=== PATIENT | female | born 2000 | race Caucasian/White ===

== ENCOUNTER 2022-10-15 10:56 | Outpatient (CLI) | payer BC, MEDICAID, SELFPAY ==
[2022-10-15 10:50] VITALS: BMI 40.1
[2022-10-15 11:16] VITALS: BP 124/71; PULSE 87
[2022-10-15 11:29] VITALS: RESP 16; TEMP 36.7
[2022-10-15 11:31] VITALS: BP 116/64; PULSE 81
[2022-10-15 11:48] VITALS: BP 114/64; PULSE 79
== END 2022-10-15 12:05 | disposition home or self-care (01) ==
LOC: OPOB 10:57 → OBGYN 11:05
PROVIDERS: PCP Nurse Practitioner Family; Visit Provider Family Medicine
DX: O16.9 Unspecified maternal hypertension, unspecified trimester (principal); Z3A.00 Weeks of gestation of pregnancy not specified
CPT/HCPCS: 59025; 99211

== ENCOUNTER 2022-11-06 10:19 | Inpatient (IN) | payer BC, MEDICAID, SELFPAY ==
[2022-11-06] VITALS (16 sets, daily range): BP systolic 126–147; BP diastolic 60–84; PULSE 60–86; RESP 15; TEMP 36.7; BMI 40.3
[2022-11-06] MEDS: miSOPROStol 100 mcg tablet 25 MCG VAGINAL ×3 (11:00→20:07)
[2022-11-06 11:02] LABS: Basophils % 0.2 %; Eosinophils % 0.4 %; Hematocrit 30.6 % (37.0-47.0); Hemoglobin 9.3 g/dL (11.5-15.3); Lymphocytes # 1.8 10^3/uL (1.5-6.5); Mean Corpuscular HGB Conc 30.4 g/dL (30.0-36.0); Mean Corpuscular Hemoglobin 22.1 pg (28.0-34.0); Mean Corpuscular Volume 72.9 fl (81-99); Mean Platelet Volume 11.1 fL (7.4-10.4); Monocytes # 0.6 10^3/uL (0.2-0.9); Monocytes % 5.8 %; Neutrophils # 7.93 10^3/uL (1.8-8.0); Neutrophils % 76.3 %; Nucleated Red Blood Cells % 0 %; Platelet Count 339 10^3/cmm (130-400); Red Cell Distribution Width 16.8 % (12.1-15.1); White Blood Count 10.4 10^3/uL (4.5-13.0)
[2022-11-07] VITALS (80 sets, daily range): BP systolic 122–166; BP diastolic 61–103; PULSE 65–137; RESP 15–17; TEMP 36.5–36.8; O2SAT 98–100
[2022-11-07] MEDS: dextrose 5%-lactated ringers 1,000 ML 125 ML IV ×2 (01:30→13:07)
[2022-11-07] MEDS: oxytocin 30 UNIT/500 ML BAG IV (05:17)
[2022-11-07] MEDS: lactated ringers 1,000 ML 999 ML IV ×3 (05:28→11:32)
--- NOTE | 2022-11-07 06:02 | P.ANESUD_ITS ---
Pre-Anesthetic Update Pre-Anesthetic Assessment: Date of Surgery/Procedure: 11/07/22 Preop Senait gnosis: IUP Any changes to Pre-Anesthetic Assessment?: No Last Intake: 19:30 Labs Last 48hrs: Short CBC 11/06/22 Range/Units 10:40 WBC 10.4 (4.5-13.0) 10^3/ uL Hgb 9.3 L (11.5-15.3) g/dL Hct 30.6 L (37.0-47.0) % MCV 72.9 L (81-99) fl Plt Count 339 (130-400) 10^3/c mm Neut % (Auto) 76.3 % Neut # (Auto) 7.93 (1.8-8.0) 10^3/u L Vitals: Temperature 98.0 F 11/06/22 10:30 Temperature Source Oral 11/06/22 10:30 Pulse Rate 68 11/07/22 03:45 Respiratory Rate 15 11/06/22 10:47 Respiratory Effort Non-Labored 11/06/22 11:25 Respiratory Depth Normal 11/06/22 11:25 Respiratory Patter n 11/06/22 11:25 Blood Pressure 128/61 11/07/22 03:45 Oxygen Delivery Me thod 11/06/22 11:25 Exam: Pre-Anes Outpt Exam: alert, oriented x 3, clear to auscultation bilaterally and regular rate & rhythm Cardiac Studies: No Data to Display
--- NOTE | 2022-11-07 06:38 | P.HPUD_ITS ---
Labor & Delivery H&P Update Date of Procedure: November 07, 2022 Date H&P Performed: 11/01/22 Changes to previous documentation: Changes to previous documentation upon arrival to the hospital. Admission Diagnosis: 22-year-old 1 at 41 weeks estimated gestational age presenting for postdates induction Preop diagnosis: IUP Primary indication for procedure: Postdates Planned procedure: Spontaneous vaginal delivery Other information: The patient is a relatively healthy 3 female who had an unremarkable . Her due date was based on her last menstrual period. Her labs were as follows. Her blood type was a positive. Her antibody screen was negative. She is rubella immune. Her GBS status is negative. She passed her glucose screen. The remainder of her infectious disease profile was within norm al limits. Her drug screen was negative. We discussed the pros and cons of induction with the patient, and together we elected to proceed with an induction after 41 weeks. She and her have no further questions. Related Problem List Diagnoses (1) 41 weeks gestation of : A&P Assessment and plan (1) 41 weeks gestation of : I anticipate routine induction. The patient has received 3 doses of Cytotec. Pitocin was initiated this morning. Has chosen to have an epidural. Status: Acute
--- NOTE | 2022-11-07 07:09 | ANES.PROC ---
Anesthesia Procedures Procedure/Date: 11/07/22 Epidural: Time Out Performed: Yes Consents Signed: Procedure Consent and NPO Consent Consent: requested by attending/covering physician, from patient, risks and benefits reviewed and patient agrees to proceed Lumbar Level: L2-L3 Epidural position: sitting Epidural procedure: sterile prep of area, 1% lidocaine to numb the area (3 mL), neg for paresthesia, test dose given, 1.5% xylocaine 1:200k epi (3 mL/ 2 mL), 0.2% Ropivacaine bolus ml (5), placed PCEA, no systemic response, sterile dressing applied, L.U.D. no apparent complications and 0.2% Ropiavacaine @ mls/hr (13) Additional Comments: NIDA 8cm, catheter placed at 13 cm 3 attempts
[2022-11-07] MEDS: ondansetron 2 mg/ML SDV 2 mL 4 MG IVP (13:11)
--- NOTE | 2022-11-07 15:51 | P.PCNOB_ITS ---
Delivery Note: Date of delivery: November 07, 2022 Pre-delivery diagnoses: 1. 22-year-old 1 at 41 weeks estimated gestational age induced due to postdates Post-delivery diagnoses: Status post spontaneous vaginal delivery Procedure: Continuous vaginal delivery Delivering Physician: Dre Brown Estimated blood loss (mL): 100 Pre-Delivery Course: The patient presented for the hospital for induction due to postdates. Cytotec 25 mcg x 3 were placed every 4 hours. An epidural was placed. An amniotomy was performed. Pitocin was added for augmentation. She progressed to complete in labor down prior to pushing. She did have several episodes where the baby had decelerations which responded to position changes. Delivery: DELIVERY: The patient progressed to complete without difficulty. She delivered a male with a weight of 7 pounds 3 ounces with Apgars of 8, 9. The baby was delivered from the MAX position andplaced on the mother's abdomen. The baby's mouth and nose were suctioned orally after delivery. The cord was then clamped and cut. There was no nuchal cord. Significant meconium was noted. The placenta and 3 vessel cord were delivered intact shortly thereafter. The perineum and vaginal vault were carefully examined. A first-degree tear on the patient's left and right medial aspect of the lab [place] were noted. The tear on her right side was continued to bleed, and was repaired with 3-0 Vicryl in a running stitch. No further repairs were required. Both the mother and the baby were in stable condition. 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
--- NOTE | 2022-11-07 16:25 | ANE.PACU2 ---
Inpatient post-anesthesia follow up: Airway intact: Yes Vital signs: Temperature 98.1 F Pulse Rate 91 Respiratory Rate 16 Blood Pressure 128/68 Pulse Oximetry 99 Oxygen Delivery Me thod Room Air Oxygen Flow Rate Fraction of Inspir ed Oxygen Hydration adequate: Yes Nausea and vomiting: No Pain level: 2 Mental status: Baseline
--- NOTE | 2022-11-07 17:00 | PC.NURSE ---
Pt up to bathroom with minimal assistance. Pt voided well. Cyn care demonstrated and performed by pt. Gown, underwear and pad changed. Bed linens changed. Pt remains up in room visiting with family.
[2022-11-07] MEDS: benzocaine-menthol 78 gm Canister 1 SPRAY TOPICAL (18:26)
--- NOTE | 2022-11-07 19:04 | PC.NURSE ---
pt ambulated to OB8. oriented to room/call light. proud parent pack discussed.
[2022-11-07] MEDS: ibuprofen 800 mg tablet PO (20:53)
[2022-11-07] MEDS: docusate sodium 100 mg Capsule PO (20:53)
[2022-11-08 01:40] VITALS: BP 131/80; PULSE 80; RESP 16; TEMP 36.6; O2SAT 99
[2022-11-08 03:59] VITALS: BP 137/81; PULSE 73; RESP 16; TEMP 36.6; O2SAT 97
[2022-11-08 04:23] LABS: Hemoglobin 7.4 g/dL (11.5-15.3); Mean Corpuscular HGB Conc 29.6 g/dL (30.0-36.0); Mean Corpuscular Hemoglobin 21.9 pg (28.0-34.0); Mean Platelet Volume 10.6 fL (7.4-10.4); Platelet Count 255 10^3/cmm (130-400); Red Blood Count 3.38 10^6/uL (4.1-5.3); Red Cell Distribution Width 16.6 % (12.1-15.1)
--- NOTE | 2022-11-08 07:41 | PM.OBGYDC ---
Discharge Providers REPAIR TECH Date of Admission: 11/06/22 10:19 Date of Discharge: 11/08/22 Attending Provider at Admission: Dre Brown MD Attending Provider at Discharge: Dre Brown MD Primary Care Provider: BLANCA Carolina Diagnoses at Discharge Discharge Diagnosis (1) 41 weeks gestation of : Status: Acute (2) Spontaneous vaginal delivery: Status: Acute Reason for Visit Reason for Visit: IOL Hospital Course Hospital Course The patient presented to the hospital at 40 weeks estimated gestational age for postdates induction. She was placed on Cytotec 25 mcg x 3. Amniotomy was performed. An epidural was placed. Pitocin was used to augment labor. She progressed to complete and had an unremarkable delivery of a healthy-appearing male . Her course was also been unremarkable. She has bottle-fed. Her bleeding has been within normal limits. Her pain is been well controlled. Information Peripartum Data: Infant Delivery Method: Vaginal Physical Exam Narrative: The patient is alert. She appears comfortable. Her heart has a regular rate and rhythm with no murmurs appreciated. Lungs are clear to auscultation bilaterally. Her fundus is firm and below the umbilicus. Urinary Catheter Management: Toure Latex: Cath Placed During This Visit: yes Urinary Catheter Date of Insertion: 11/07/22 Urinary Catheter Time of Insertion: 07:37 Discharge Data Studies Completed and Pending Laboratory Results WBC 11.0 10^3/uL (4.5-13.0) 11/08/22 04:10 RBC 3.38 10^6/uL (4.1-5.3) L 11/08/22 04:10 Hgb 7.4 g/dL (11.5-15.3) L 11/08/22 04:10 Hct 25.0 % (37.0-47.0) L 11/08/22 04:10 MCV 74.0 fl (81-99) L 11/08/22 04:10 MCH 21.9 pg (28.0-34.0) L 11/08/22 04:10 MCHC 29.6 g/dL (30.0-36.0) L 11/08/22 04:10 RDW 16.6 % (12.1-15.1) H 11/08/22 04:10 Plt Count 255 10^3/cmm (130-400) 11/08/22 04:10 MPV 10.6 fL (7.4-10.4) H 11/08/22 04:10 Neut % (Auto) 76.3 % 11/06/22 10:40 Lymph % (Auto) 17.0 % 11/06/22 10:40 [place] % (Auto) 5.8 % 11/06/22 10:40 Eos % (Auto) 0.4 % 11/06/22 10:40 Baso % (Auto) 0.2 % 11/06/22 10:40 Neut # (Auto) 7.93 10^3/uL (1.8-8.0) 11/06/22 10:40 Lymph # (Auto) 1.8 10^3/uL (1.5-6.5) 11/06/22 10:40 [place] # (Auto) 0.6 10^3/uL (0.2-0.9) 11/06/22 10:40 Eos # (Auto) 0.0 10^3/uL (0.0-0.8) 11/06/22 10:40 Baso # (Auto) 0.0 10^3/uL (0.0-0.1) 11/06/22 10:40 Nucleated RBC % (auto) 0 % 11/06/22 10:40 Nucleated RBCs # 0.0 /100WBC 11/06/22 10:40 Vitals Last Vital Signs Temp 97.8 F 11/08/22 03:59 Pulse 73 11/08/22 03:59 Resp 16 11/08/22 03:59 BP 137/81 11/08/22 03:59 Pulse Ox 97 11/08/22 03:59 O2 Del Method 11/08/22 03:59 Discharge Plan Discharge Patient Disposition: Home Condition: Stable Prescriptions: New ibuprofen 800 mg Tablet 800 mg PO TID Qty: 45 0RF Continued Bariatric Multivitamins 45 mg iron- 800 mcg-120 mcg capsule 1 cap PO DAILY iron 325 mg (65 mg iron) Tablet 325 mg PO BID Vitamin C Discharge Orders: Discharge Order (Routine); Ordered 11/08/22 Ordered By: Dre Brown Referrals: Dre Brown MD [Physician] - 6 Weeks Discharge Diet: Usual diet Discharge Activity: Limit activity as instructed Patient Instructions: Opioid Safety Discharge Attestations REPAIR TECH Time Spent in Discharge Care*: less than 30 min Coding Level of Care Code Acute Mission Support Specialist for Chg Fwd Diagnoses 41 weeks gestation of O48.0; Z3A.41 Spontaneous vaginal delivery O80
[2022-11-08] MEDS: ibuprofen 800 mg tablet PO ×2 (08:53→14:56)
[2022-11-08] MEDS: docusate sodium 100 mg Capsule PO (08:53)
[2022-11-08] MEDS: prenatal vitamin Capsule 1 CAP PO (08:53)
[2022-11-08 09:00] VITALS: BP 130/86; PULSE 93; TEMP 36.5; O2SAT 98
[2022-11-08 15:24] VITALS: BP 126/85; PULSE 79; TEMP 36.8; O2SAT 98
[2022-11-08 16:10] VITALS: BP 126/85; PULSE 79; TEMP 36.8; O2SAT 98
== END 2022-11-08 16:10 | disposition home or self-care (01) | DRG 807 ==
LOC: OPOB 10:19 → OBGYN 10:24
PROVIDERS: Admitting Provider Family Medicine; PCP Nurse Practitioner Family; Visit Provider Family Medicine
DX: O48.0 Post-term pregnancy (principal); Z37.0 Single live birth; O76 Abnormality in fetal heart rate and rhythm complicating labor and delivery; O77.0 Labor and delivery complicated by meconium in amniotic fluid; O70.0 First degree perineal laceration during delivery; Z3A.41 41 weeks gestation of pregnancy
CPT/HCPCS: 12345; 36415; 51702; 59025; 59409; 85025; 85027; 96374; J2405; J2590; J2795; J7120; J7121

== ENCOUNTER 2024-11-19 18:28 | Inpatient (IN) | payer BC, MEDICAID, SELFPAY ==
[2024-11-19] VITALS (18 sets, daily range): BP systolic 121–149; BP diastolic 59–79; PULSE 77–97; RESP 18; TEMP 35.6–36.6; BMI 40.4
[2024-11-19 20:39] LABS: Basophils % 0.3 %; Eosinophils # 0.1 10^3/uL (0.0-0.8); Eosinophils % 0.5 %; Hematocrit 24.3 % (36-47); Lymphocytes # 3.1 10^3/uL (0.8-4.8); Lymphocytes % 29.5 %; Mean Corpuscular HGB Conc 27.2 g/dL (30-55); Mean Corpuscular Volume 62.6 fl (85-98); Monocytes # 0.7 10^3/uL (0.2-0.9); Monocytes % 6.5 %; Neutrophils # 6.54 10^3/uL (1.8-7.7); Neutrophils % 62.9 %; Nucleated Red Blood Cells % 0 %; Platelet Count 359 10^3/cmm (157-399); Red Blood Count 3.88 10^6/uL (3.85-5.65); Red Cell Distribution Width 18.5 % (12.1-15.1); White Blood Count 10.38 10^3/uL (3.29-11.43)
[2024-11-19] MEDS: ampicillin 2,000 MG in sodium chloride 0.9% (plus) 50 ML 100 MG IV (21:19)
[2024-11-19] MEDS: lactated ringers 1,000 ML 125 ML (21:20)
[2024-11-19] MEDS: miSOPROStol 100 mcg tablet 25 MCG VAGINAL (22:53)
[2024-11-20] VITALS (84 sets, daily range): BP systolic 117–160; BP diastolic 58–95; PULSE 70–118; RESP 16–18; TEMP 35.6–37; O2SAT 98–100
[2024-11-20] MEDS: ampicillin 1,000 MG in sodium chloride 0.9% (plus) 50 ML 100 MG IV ×4 (02:18→14:21)
[2024-11-20 03:39] LABS: Basophils % 0.4 %; Eosinophils # 0.1 10^3/uL (0.0-0.8); Eosinophils % 0.5 %; Hematocrit 25.9 % (36-47); Lymphocytes # 2.9 10^3/uL (0.8-4.8); Lymphocytes % 28.6 %; Mean Corpuscular HGB Conc 27.4 g/dL (30-55); Mean Corpuscular Hemoglobin 17.8 pg (27-33); Mean Corpuscular Volume 64.8 fl (85-98); Mean Platelet Volume 9.9 fL (7.4-10.4); Monocytes # 0.6 10^3/uL (0.2-0.9); Monocytes % 5.7 %; Neutrophils # 6.46 10^3/uL (1.8-7.7); Neutrophils % 64.5 %; Nucleated Red Blood Cells % 0 %; Platelet Count 351 10^3/cmm (157-399); White Blood Count 10.01 10^3/uL (3.29-11.43)
[2024-11-20] MEDS: miSOPROStol 100 mcg tablet 25 MCG VAGINAL (03:59)
[2024-11-20] MEDS: ROPivacaine syringe 100 MG/50 ML SYRINGE 12 MG EPIDURAL ×4 (04:50→15:53)
--- NOTE | 2024-11-20 04:53 | P.ANESASSM_ITS ---
Pre-Anesthetic Assessment Height/Weight: Height 1.8 m Weight 131.542 kg Temp Pulse Resp BP Pulse Ox O2 Del Method 96.1 F L 107 H 18 136/77 100 Room Air 11/20/24 02:50 11/20/24 04:48 11/19/24 22:35 11/20/24 04:48 11/20/24 04:42 11/19/24 20:11 Epidural Familial anesthetic complications: None Was Beta Adeel taken within 24 hours: N/A Was Clonidine taken within 24 hours: N/A Last intake: 1700 solid food Social No alcohol and No tobacco Exam alert, oriented x 3 and regular rate & rhythm Airway Submandibular: within normal limits Cervical ROM: within normal limits Mallampati: Class III Dentition: full History/ROS No significant history except as noted and No significant complaints Pulmonary None reported CV/HEM Anemia (Received 1 unit PRBC. Denied lightheadedness, dizziness, or syncopal episodes.) None reported Hepatic None reported GI None reported Metabolic Morbid Obesity [facility] [place]/sk None reported Neuropsych None reported Anesthetic Plan ASA status: 3 Anesthesia: Anesthesia Evaluation, General and Regional (specify below) (Epidural) Risk of > 500 ml blood loss (7ml/kg in children): Yes, adequate IV access and fluids planned Medications/Allergies Home Medications Medication Instructions Recorded Confirmed Last Taken Type ibuprofen 800 mg tablet 800 mg PO TID #45 tabs 11/08/22 08/27/23 Unknown Rx gxvuzbzt-[id number] 3.5 1 drp ophthalmic (eye) Q8H #5 mL 08/27/23 08/27/23 Unknown Rx mg/mL-10,000 unit/mL-0.1% eye drops (Maxitrol) Allergies Allergy/AdvReac Type Severity Reaction Status Date / Time Opioids - Morphine Analogues AdvReac sick Verified 08/27/23 16:04 Current Medications Generic Name Dose Route Start Last Admin Trade Name Freq PRN Reason Stop Dose Admin Ampicillin Sodium 1,000 mg/ 50 mls @ 100 mls/hr 11/20/24 00:15 11/20/24 02:18 Sodium Chloride IV 100 mls/hr Q4H CELINA Administration Protocol [facility] Anesthesia Medical History Bronchitis Sinusitis Social History (Reviewed 08/27/23 @ 16:20 by BERNY Pete Smoking and tobacco/nicotine status: never used tobacco/nicotine Second hand smoke exposure: No Alcohol intake: never Substance/Drug Use: never Female Reproductive History : 2 Data Anesthesia 11/20/24 03:34 Short CBC 11/19/24 11/20/24 11/20/24 Range/Units 20:00 03:00 03:34 WBC 10.38 Cancelled 10.01 (3.29-11.43) 10^3/uL Hgb 6.60 L Cancelled 7.10 L (11.27-16.99) g/dL Hct 24.3 L Cancelled 25.9 L (36-47) % MCV 62.6 L Cancelled 64.8 L (85-98) fl Plt Count 359 Cancelled 351 (157-399) 10^3/cmm Neut % (Auto) 62.9 Cancelled 64.5 % Neut # (Auto) 6.54 Cancelled 6.46 (1.8-7.7) 10^3/uL Blood Bank 11/19/24 20:00 Blood Type A Positive Rho(D) Type Rh positive Antibody Screen Negative Cardiac Studies: 2 No Data to Display
--- NOTE | 2024-11-20 04:57 | ANES.PROC ---
Documented by User: Sherman Jeff, DEREK 11/20/24 05:00 Anesthesia Procedures Procedure/Date: 11/20/24 Epidural: Time Out Performed: Yes Consents Signed: Procedure Consent and NPO Consent Consent: requested by attending/covering physician, from patient, risks and benefits reviewed and patient agrees to proceed Lumbar Level: L3-L4 Epidural position: sitting Epidural procedure: sterile prep of area (betadine), 1% lidocaine to numb the area (3 mLs), neg for paresthesia, test dose given, 1.5% xylocaine 1:200k epi (3 mLs/ 2 mLs), placed PCEA, no systemic response, sterile dressing applied, L.U.D. no apparent complications and 0.2% Ropiavacaine @ mls/hr (12) Additional Comments: NIDA 8cm, no csf or blood noted upon aspiration. Catheter threaded to 14cm. Patient tolerated procedure well. Documented by User: Taran Woods DO 11/20/24 11:54 Anesthesia Procedures Procedure/Date: 11/20/24 Epidural: Additional Comments: NIDA 8cm, no csf or blood noted upon aspiration. Catheter threaded to 14cm. Patient tolerated procedure well. Received a call for epidural not working well around 1100. Catheter pulled back to 12cm. 100mcg fentnayl and 5cc 2% lidocaine pushed through epidural. FU patient stated she was feeling much better
[2024-11-20] MEDS: oxytocin 30 UNIT/500 ML BAG IV (08:00)
--- NOTE | 2024-11-20 09:45 | PM.OBGYHP ---
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 She presented to the hospital last night for induction due to having gestational hypertension. She presented to my office on 3 separate occasions in the last week and was noted to have elevated blood pressures including some severe pressures. We checked her multiple times and each visit and despite our multiple visit checks she was elevated each time. A preeclamptic profile done in my office last week was negative. Another complicating factor is the patient's anemia. She has been on iron throughout her due to having hemoglobins that have been in the 7.1-7.5 range. Despite being on iron with vitamin C separate from meals, she was unable to improve her hemoglobin. We did set her up for IV iron, but the prior authorization process had took several weeks and she would not have been able to get it done the end of this week at the earliest. Since we are inducing her for her gestational hypertension/preeclampsia, the IV iron would not have been helpful as would require some time to build up her blood counts. Thankfully she has had no symptoms of anemia. She had been hemodynamically stable throughout. I encouraged her to drink plenty of fluids over the last couple of days we knew there is a chance she could be getting induced. Present Details : 2 Para: 1 Labs Rubella: Immune RPR: Negative GBS: Positive Review of Systems General: Reports: 10 or more systems reviewed and unremarkable except in HPI and below Const: Reports: fatigue; Denies: fever(s) Eyes: Denies: change in vision Card: Reports: edema; Denies: chest pain Musc: Reports: back pain Gary/Lymph: Denies: easy bruising Medications/Allergies Home Medications Medication Instructions Recorded Confirmed Last Taken Type ferrous sulfate 325 mg (65 mg 325 mg PO BID #180 tabs 11/21/24 Unknown Rx iron) tablet,delayed release ibuprofen 800 mg tablet 800 mg PO TID #45 tabs 11/21/24 Unknown Rx Allergies Allergy/AdvReac Type Severity Reaction Status Date / Time Opioids - Morphine Analogues AdvReac sick Verified 08/27/23 16:04 PFS 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 PFSH: Medical History (Updated 11/20/24 @ 17:43 by Dre Brown MD) Bronchitis Sinusitis Surgical History (Updated 11/20/24 @ 09:50 by Dre Brown MD) Bariatric surgery status Social History Smoking and tobacco/nicotine status: never used tobacco/nicotine Second hand smoke exposure: No Alcohol intake: never Substance/Drug Use: never History History History 2 Term 2 0 Miscarriages/Ectopic 0 Living Children 2 Vitals/I&O/Wt Last Vital Signs Temp 96.1 F L 11/20/24 02:50 Pulse 77 11/20/24 09:37 Resp 18 11/20/24 00:27 BP 138/82 11/20/24 09:37 Pulse Ox 100 11/20/24 04:42 O2 Del Method Room Air 11/19/24 20:11 11/19/24 11/20/24 11/20/24 22:59 06:59 14:59 Intake Total 0 / 0 400 / 400 107.750 / 107.750 Balance 0 / 0 400 / 400 107.750 / 107.750 Weight last 48 hrs Weight 290 lb Physical Exam Const: COMMON NORMALS: patient oriented x3 and alert HENMT: COMMON NORMALS: moist oral mucous membranes HEAD & SCALP: normal to inspection Chest: COMMONS NORMALS: normal inspection of the chest Resp: COMMON NORMALS: clear to auscultation bilaterally AUSCULTATION: clear to auscultation bilaterally Cardio: COMMON NORMALS: regular rate and regular rhythm RATE: regular rate RHYTHM: regular rhythm GI: INSPECTION: Yes normal to inspection and Yes other (Gravid) Extremity: COMMON NORMALS: normal to inspection GENERAL: Yes edema (Trace to 1+.) Neuro: COMMON NORMALS: patient oriented x3, moves all extremities and no sensory deficits noted SENSORIUM/ORIENTATION: Yes alert Psych: COMMON NORMALS: mental status grossly normal Skin: COMMON NORMALS: no rashes or lesions noted GENERAL SKIN EXAM: no rashes or lesions noted Urinary Catheter Management: Toure: Cath Placed During This Visit: yes Reason for Continuing Indwelling Catheter: Required Immobilization for Trauma or Surgery or Anesthesia Urinary Catheter Date of Insertion: 11/20/24 Urinary Catheter Time of Insertion: 05:35 Data 11/21/24 04:54 Results Labs OB ([facility]): Blood Type A Positive 11/19/24 Antibody Screen Negative 11/19/24 Hct 23.2 % (36-47) L 11/21/24 Hgb 6.20 g/dL (11.27-16.99) L* 11/21/24 Rho(D) Type Rh positive 11/19/24 Plt Count 237 10^3/cmm (157-399) 11/21/24 A&P Assessment and plan (1) 37 weeks gestation of : (2) Gestational hypertension: We will continue to monitor for other indications of preeclampsia. Thankfully, her blood pressures have been doing better overall during labor process. (3) Anemia affecting , antepartum: Upon arrival to hospital she was noted to have a hemoglobin of less than 7. I elected to give her 1 unit of blood. We also have placed 2 18-gauge IVs. Her blood been typed and screened. She is otherwise been hemodynamically stable. During the delivery if we see any indication that she would benefit from further interventions will be much quicker to start manage interventions due to her baseline hemoglobin level. Attestations Medical Necessity Statement*: I anticipate routine antepartum and care. Coding Level of Care Code Acute Code for Chg Fwd Diagnoses 37 weeks gestation of Z3A.37 Gestational hypertension O13.9 Anemia affecting , antepartum O99.019
[2024-11-20] MEDS: tranexamic acid 1,000 MG/100 ML PREMIX 600 MG IV (17:26)
[2024-11-20] MEDS: oxytocin 30 UNIT/500 ML BAG 999 UNIT IV (17:27)
--- NOTE | 2024-11-20 17:36 | PM.DELIVERY ---
Delivery Note: Date of delivery: November 20, 2024 Pre-delivery diagnoses: 24-year-old 2 para 1-0-0-1 at 37 weeks estimated gestational age Gestational hypertension Gestational anemia Post-delivery diagnoses: Status post spontaneous vaginal delivery Procedure: Spontaneous vaginal delivery Estimated blood loss (mL): 50 Pre-Delivery Course: The patient presented to the hospital the night prior to delivery. She was induced due to gestational hypertension. She was known to have significant anemia. Upon arrival at the hospital her CBC was checked and her hemoglobin was found to be 6.6. She was given a unit of packed red blood cells. She was placed on Cytotec 25 mcg x 2. An amniotomy was performed. Pitocin was added. She progressed to complete without difficulty. Delivery: DELIVERY: The patient progressed to complete without difficulty. She delivered a male with a weight of 6 pounds 14 ounces with Apgars of 7, 8. The baby was delivered from the MAX position and placed on the mother's abdomen.. The baby's mouth and nose were suctioned shortly after delivery. . The cord was then clamped and cut about 1 minute after delivery. There was a nuchal cord x 1. The baby was delivered through the cord.. There was no meconium. The placenta and 3 vessel cord were delivered intact shortly thereafter. The perineum and vaginal vault were carefully examined. No lacerations were noted. Both the mother and the baby were in stable condition. Post-Delivery Status: Good History History History 2 Term 2 0 Miscarriages/Ectopic 0 Living Children 2 A&P Assessment and plan (1) Gestational hypertension: The patient has had minimal issues with blood pressures during her labor. She has had no other symptoms of preeclampsia. As such, we will monitor her blood pressure, but we will not do any further intervention to evaluate or treat for preeclampsia. If her symptoms or vital signs change we will adjust accordingly. (2) 37 weeks gestation of : (3) Spontaneous vaginal delivery: (4) Anemia complicating , unspecified trimester: We will recheck her blood counts 4 hours postdelivery. We will monitor her bleeding very carefully due to her significant anemia. Coding Level of Care Code Acute Code for g Fwd Diagnoses Gestational hypertension O13.9 37 weeks gestation of Z3A.37 Spontaneous vaginal delivery O80 Anemia complicating , unspecified trimester O99.019
--- NOTE | 2024-11-20 18:57 | PC.NURSE ---
IV IN RIGHT FOREARM INFILTRATED SO IT WAS REMOVED AND ANOTHER #20 JELCO WAS STARTED IN RIGHT AC SPACE.
[2024-11-20] MEDS: ibuprofen 800 mg tablet PO (21:19)
[2024-11-20] MEDS: benzocaine-menthol 78 gm Canister 1 SPRAY TOPICAL (21:20)
[2024-11-20 22:22] LABS: Hematocrit 26.1 % (36-47); Mean Corpuscular HGB Conc 27.6 g/dL (30-55); Mean Corpuscular Hemoglobin 18.2 pg (27-33); Mean Corpuscular Volume 66.1 fl (85-98); Mean Platelet Volume 10.2 fL (7.4-10.4); Platelet Count 339 10^3/cmm (157-399); Red Blood Count 3.95 10^6/uL (3.85-5.65); Red Cell Distribution Width 19.9 % (12.1-15.1); White Blood Count 15.35 10^3/uL (3.29-11.43)
[2024-11-21] VITALS (8 sets, daily range): BP systolic 128–219; BP diastolic 73–139; PULSE 71–98; RESP 16–17; TEMP 36.4–36.6; O2SAT 98–100
[2024-11-21] MEDS: HYDROcodone-acetaminophen 5-325 mg Tablet PO (03:58)
[2024-11-21 05:04] LABS: Hematocrit 23.2 % (36-47); Mean Corpuscular HGB Conc 26.7 g/dL (30-55); Mean Corpuscular Volume 67.2 fl (85-98); Mean Platelet Volume 10.3 fL (7.4-10.4); Platelet Count 237 10^3/cmm (157-399); Red Blood Count 3.45 10^6/uL (3.85-5.65); Red Cell Distribution Width 19.9 % (12.1-15.1); White Blood Count 12.08 10^3/uL (3.29-11.43)
[2024-11-21] MEDS: docusate sodium 100 mg Capsule PO (09:53)
[2024-11-21] MEDS: ferrous sulfate EC 325 mg Tablet PO (09:54)
[2024-11-21] MEDS: ibuprofen 800 mg tablet PO ×2 (09:54→15:27)
--- NOTE | 2024-11-21 10:03 | ANE.PACU2 ---
Inpatient post-anesthesia follow up: Airway intact: Yes Vital signs: Temperature 97.5 F Pulse Rate 74 Respiratory Rate 16 Blood Pressure 149/95 Pulse Oximetry 100 Oxygen Delivery Me thod Room Air Oxygen Flow Rate Fraction of Inspir ed Oxygen Hydration adequate: Yes Nausea and vomiting: No Pain level: 1 Mental status: Baseline Epidural Start/End: Epidural Start Date: 11/20/24 Epidural Start Time: 04:23 Epidural End Date: 11/20/24 Epidural End Time: 18:16
--- NOTE | 2024-11-21 11:16 | PM.OBGYDC ---
Discharge Providers BUSINESS OBJECTS REPORT DEVELOPER Date of Admission: 11/19/24 18:28 Date of Discharge: 11/21/24 Attending Provider at Admission: Dre Brown MD Attending Provider at Discharge: Dre Brown MD Primary Care Provider: BLANCA [place] Diagnoses at Discharge Discharge Diagnosis (1) Gestational hypertension: Status: Acute (2) 37 weeks gestation of : Status: Acute (3) Spontaneous vaginal delivery: Status: Acute (4) Anemia complicating , unspecified trimester: Status: Acute Reason for Visit Reason for Visit: IOL Hospital Course Hospital Course The patient presented to the hospital for induction due to gestational hypertension. She was placed on Cytotec 25 mcg x 2. An epidural was placed. An amniotomy was performed. Pitocin was initiated. She progressed to complete and had an unremarkable delivery of a healthy appearing male . She did spike some severe blood pressures the night after her delivery. Thankfully these were all followed by normal range blood pressures shortly after they were measured. Her bleeding has been minimal. Her pain has been well-controlled. There have been no concerns. She did have significant anemia. She received a unit of blood after arrival to hospital. Thankfully during her delivery there was minimal bleeding and no further blood was required. Information Peripartum Data: Infant Delivery Method: Vaginal Physical Exam Narrative: The patient is alert. She appears comfortable. Her heart has a regular rate and rhythm with no murmurs appreciated. Lungs are clear to auscultation bilaterally. Her fundus is firm and below the umbilicus. Urinary Catheter Management: Toure: Cath Placed During This Visit: yes, but has since been removed by the nurse Reason for Continuing Indwelling Catheter: Decision to DC Catheter Urinary Catheter Date of Insertion: 11/20/24 Urinary Catheter Time of Insertion: 05:35 Date Urinary Catheter Removed: 11/20/24 Time Urinary Catheter Discontinued: 17:10 History History History 2 Term 2 0 Miscarriages/Ectopic 0 Living Children 2 Discharge Data Studies Completed and Pending Pending at discharge Category Date Time Status RED BLOOD CELLS [Leukocyte Reduced RBC] Routine Lab 11/19/24 20:00 Results Type and Screen Routine Lab 11/19/24 20:00 Results Laboratory Results WBC 12.08 10^3/uL (3.29-11.43) H 11/21/24 04:54 Corrected WBC Cancelled 11/20/24 03:00 RBC 3.45 10^6/uL (3.85-5.65) L 11/21/24 04:54 Hgb 6.20 g/dL (11.27-16.99) L* 11/21/24 04:54 Hct 23.2 % (36-47) L 11/21/24 04:54 MCV 67.2 fl (85-98) L 11/21/24 04:54 MCH 18.0 pg (27-33) L 11/21/24 04:54 MCHC 26.7 g/dL (30-55) L 11/21/24 04:54 RDW 19.9 % (12.1-15.1) H 11/21/24 04:54 Plt Count 237 10^3/cmm (157-399) D 11/21/24 04:54 MPV 10.3 fL (7.4-10.4) 11/21/24 04:54 Gran % Cancelled 11/20/24 03:00 Neut % (Auto) 64.5 % 11/20/24 03:34 Lymph % (Auto) 28.6 % 11/20/24 03:34 Dodge % (Auto) 5.7 % 11/20/24 03:34 Eos % (Auto) 0.5 % 11/20/24 03:34 Baso % (Auto) 0.4 % 11/20/24 03:34 Neut # (Auto) 6.46 10^3/uL (1.8-7.7) 11/20/24 03:34 Lymph # (Auto) 2.9 10^3/uL (0.8-4.8) 11/20/24 03:34 Dodge # (Auto) 0.6 10^3/uL (0.2-0.9) 11/20/24 03:34 Eos # (Auto) 0.1 10^3/uL (0.0-0.8) 11/20/24 03:34 Baso # (Auto) 0.0 10^3/uL (0.0-0.1) 11/20/24 03:34 Absolute Gran (auto) Cancelled 11/20/24 03:00 Nucleated RBC % (auto) 0 % 11/20/24 03:34 Nucleated RBCs # 0.0 /100WBC 11/20/24 03:34 Blood Type A Positive 11/19/24 20:00 Rho(D) Type Rh positive 11/19/24 20:00 Antibody Screen Negative 11/19/24 20:00 Crossmatch See Detail 11/19/24 20:00 Vitals Last Vital Signs Temp 97.8 F 11/21/24 09:59 Pulse 98 11/21/24 09:59 Resp 17 11/21/24 09:59 BP 145/73 11/21/24 09:59 Pulse Ox 99 11/21/24 04:58 O2 Del Method Room Air 11/21/24 09:59 Results Labs OB ([facility]): Blood Type A Positive 11/19/24 Antibody Screen Negative 11/19/24 Hct 23.2 % (36-47) L 11/21/24 Hgb 6.20 g/dL (11.27-16.99) L* 11/21/24 Rho(D) Type Rh positive 11/19/24 Plt Count 237 10^3/cmm (157-399) 11/21/24 Discharge Plan Discharge Patient Disposition: Home Condition: Stable Prescriptions: New ferrous sulfate 325 mg (65 mg iron) Tablet,Delayed Release (Dr/Ec) 325 mg PO BID Qty: 180 1RF Rx Instructions: Take separate from meals with vitamin C if possible. ibuprofen 800 mg Tablet 800 mg PO TID Qty: 45 0RF Discontinued neomycin-polymyxin B-dexameth [Maxitrol] 3.5mg/mL-10,000 unit/mL-0.1 % drops,suspension 1 drp ophthalmic (eye) Q8H Qty: 5 0RF ibuprofen 800 mg Tablet 800 mg PO TID Qty: 45 0RF Discharge Orders: Discharge Order (Routine); Ordered 11/21/24 Ordered By: Dre Brown Referrals: Dre Brown MD [Physician] - 4-7 days (Please also set up for visit in 6 weeks.) Discharge Diet: Usual diet Discharge Activity: Limit activity as instructed Patient Instructions: Depression (DC), Opioid Safety (DC), Preeclampsia and Eclampsia After Delivery (GEN), Hemorrhage (DC), OB Discharge Report, OB Food/Drug Interaction Guide, OB Care at Home, Opioid Safety, OB Vaginal Deliveries, Abnormal Bleeding Discharge Attestations BUSINESS OBJECTS REPORT DEVELOPER Time Spent in Discharge Care*: less than 30 min Coding Level of Care Code Acute Code for Chg Fwd Diagnoses Gestational hypertension O13.9 37 weeks gestation of Z3A.37 Spontaneous vaginal delivery O80 Anemia complicating , unspecified trimester O99.019
== END 2024-11-21 19:35 | disposition home or self-care (01) | DRG 807 ==
LOC: OPOB 18:28 → OBGYN 18:28
PROVIDERS: Admitting Provider Family Medicine; PCP Nurse Practitioner Family; Visit Provider Family Medicine
DX: O13.4 Gestational [pregnancy-induced] hypertension without significant proteinuria, complicating childbirth (principal); Z37.0 Single live birth; O99.02 Anemia complicating childbirth; O99.214 Obesity complicating childbirth; E66.01 Morbid (severe) obesity due to excess calories; O69.81X0 Labor and delivery complicated by cord around neck, without compression, not applicable or unspecified; Z3A.37 37 weeks gestation of pregnancy
CPT/HCPCS: 36415; 36430; 51702; 59409; 85025; 85027; 86850; 86900; 86920; 96374; J0290; J2590; J2795; J3010; J7120; P9016

== ENCOUNTER → 2025-04-12 11:17 | Outpatient (BNVA) | payer BC, SELFPAY | PROVIDERS: PCP Nurse Practitioner Family; Visit Provider Nurse Practitioner Family | DX: Z00.00 Encounter for general adult medical examination without abnormal findings (principal); I10 Essential (primary) hypertension; D50.9 Iron deficiency anemia, unspecified; R79.89 Other specified abnormal findings of blood chemistry; D52.9 Folate deficiency anemia, unspecified; D64.9 Anemia, unspecified; Z79.899 Other long term (current) drug therapy | CPT/HCPCS: 80053; 80061; 81003; 82306; 82728; 83036; 83550; 84443; 85025 ==